=== PATIENT | female | born 1965 | race Caucasian/White ===

== ENCOUNTER → 2022-02-15 06:58 | Outpatient (BNVA) | payer OTHER, SELFPAY | PROVIDERS: Family Provider Orthopaedic Surgery; PCP Registered Nurse; Visit Provider Student in an Organized Health Care Education/Training Program | DX: S83.242A Other tear of medial meniscus, current injury, left knee, initial encounter (principal); X58.XXXA Exposure to other specified factors, initial encounter | CPT/HCPCS: 73560; 73565 ==

== ENCOUNTER 2022-02-27 08:15 | Day surgery (SDC) | payer OTHER, SELFPAY ==
[2022-02-27] VITALS (13 sets, daily range): BP systolic 106–139; BP diastolic 72–89; PULSE 61–78; RESP 8–18; TEMP 36.2–36.4; O2SAT 92–98
[2022-02-27] MEDS: sodium chloride 0.9% 1,000 ML 30 ML IV (08:58)
[2022-02-27] MEDS: ketorolac 30 mg/mL INJ IVP (08:58)
[2022-02-27] MEDS: acetaminophen 1,000 MG/100 ML PIGGYBACK 400 MG IV (08:58)
[2022-02-27 09:14] LABS: Blood Urea Nitrogen 13 mg/dL (6-20); Carbon Dioxide 25 mmol/L (22-29); Chloride 106 mmol/L (98-107); Glomerular Filtration Rate 73.7 mL/min (90-130); Glucose 90 mg/dL (65-115); Osmolality Calculated 290 mOsm/kg (285-295); Sodium 140 mmol/L (136-145)
--- NOTE | 2022-02-27 09:14 | W.PM.OPSUD ---
Surgery/Procedure H&P Update DATE OF PROCEDURE: February 27, 2022 DATE H&P PERFORMED: 02/15/22 CHANGES TO PREVIOUS DOCUMENTATION: None PREOP DIAGNOSIS: Left knee medial meniscus tear PRIMARY INDICATION FOR PROCEDURE: Left knee medial meniscus tear PLANNED PROCEDURE: Operation Date: 02/27/22 10:00 Proposed Procedures p left knee diagnostic arthroscopy with medial meniscectomy/ 78481,S83.242A(Left) - Dany Nowak DO s Meniscectomy(Left) - Dany Nowak DO
[2022-02-27 09:15] LABS: Anion Gap 13.8 (5-19); Potassium 4.8 mmol/L (3.5-5.1)
--- NOTE | 2022-02-27 09:30 | ANES.PREANE2 ---
Pre-Anesthetic Assessment Height/Weight: Height 1.63 m Weight 74.843 kg Temp Pulse Resp BP Pulse Ox O2 Del Method 97.1 F L 78 18 137/89 96 02/27/22 08:37 02/27/22 08:37 02/27/22 08:37 02/27/22 08:37 02/27/22 08:37 02/27/22 08:37 Preop Diagnosis: Left knee medial meniscus tear Operation Date: 02/27/22 10:00 Proposed Procedures p left knee diagnostic arthroscopy with medial meniscectomy/ 31835,S83.242A(Left) - Dany Nowak DO s Meniscectomy(Left) - Dany Nowak DO Familial anesthetic complications: None Was Beta Cali taken within 24 hours: N/A Was Clonidine taken within 24 hours: N/A Last intake: Intake Last Liquid Date 02/26/22 Last Liquid Time 23:00 Last Solid Date 02/26/22 Last Solid Time 23:00 Social No alcohol and No tobacco Exam alert, oriented x 3, clear to auscultation bilaterally and regular rate & rhythm Airway Mallampati: Class II Comments: Comments: some missing teeth GI Gastroesophageal Reflux Disease (occasional) Anesthetic Plan ASA status: 2 Anesthesia: MAC and Regional (specify below) Risk of > 500 ml blood loss (7ml/kg in children): No Medications/Allergies Home Medications Medication Instructions Recorded Confirmed Last Taken Type gabapentin 300 mg capsule 900 mg PO TID 02/15/21 02/27/22 02/27/22 History nystatin 100,000 unit/gram topical 1 applic topical BID #15 grams 02/15/21 02/26/22 Unknown Rx cream Multivitamin Gummies 2 gummy PO DAILY 02/26/22 02/27/22 02/27/22 History Vitamin D (with calcium) 1 tab PO DAILY 02/26/22 02/27/22 02/26/22 History baclofen 10 mg tablet 10 mg PO DAILY 02/26/22 02/27/22 02/27/22 History meloxicam 15 mg tablet 15 mg PO DAILY 02/26/22 02/27/22 02/25/22 History sertraline 100 mg tablet 100 mg PO DAILY 02/26/22 02/27/22 02/26/22 History bumetanide 1 mg tablet 1 mg PO DAILY 11/06/1902/27/22 02/26/22 History potassium chloride 10 mEq 10 meq PO DAILY 02/27/22 02/27/22 02/26/22 History tablet,extended release Allergies Allergy/AdvReac Type Severity Reaction Status Date / Time Sulfa (Sulfonamide Allergy unknown Verified 02/15/22 06:34 Antibiotics) Current Medications Generic Name Dose Route Start Last Admin Trade Name Freq PRN Reason Stop Dose Admin Sodium Chloride 1,000 mls @ 30 mls/hr 02/27/22 08:30 02/27/22 08:58 Sodium Chloride 0.9% IV 02/28/22 08:29 30 mls/hr .Q24H CRISTHIAN Administration PFSH Anesthesia Social History Smoking and tobacco status: never smoked Data Anesthesia : 02/27/22 08:47 BMP 02/27/22 08:47 Sodium 140 Potassium 4.8 Chloride 106 Carbon Dioxide 25 BUN 13 Creatinine 0.8 Glucose 90 Calcium 9.0 Cardiac Studies: No Data to Display
[2022-02-27] MEDS: ceFAZolin 2,000 MG in sodium chloride 0.9% (plus) 50 ML 100 MG IV (09:31)
--- NOTE | 2022-02-27 10:31 | P.OP_ITS ---
Brief Operative Note Date of procedure: 02/27/22 Pre-op diagnosis: Left knee medial meniscus tear Post-op diagnosis: same (With patellofemoral and medial compartment chondromalacia) Procedure Done: Left knee diagnostic and surgical arthroscopy with partial medial meniscectomy Medial and patellofemoral chondroplasties Extensive synovectomy of the medial, lateral and patellofemoral compartments Surgeon: Dany Nowak Estimated blood loss (mL): 5 Complications: None Post-op Plan: Patient to recover in PACU. She will discharge home today. She will be given appropriate discharge instructions as well as DVT prophylaxis and pain medication. Patient will follow-up with me in office in 2 weeks. She can be weightbearing as tolerated to the left lower extremity. Condition: stable Disposition: same day Coding Level of Care Code Acute Legal Billing Coordinator for Travis Deal
--- NOTE | 2022-02-27 10:33 | P.OP_ITS ---
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 Physical exam findings were concerning for a medial meniscus tear. She did present with MRI which did confirm left knee medial meniscus tear with mild chondromalacia left knee patient had no issues prior to twisting injuries and had persistent mechanical symptoms and complaints and pain medially. We shared decision making about her treatment options as far as nonoperative and operative intervention. She understands the risk benefits complication alternatives of surgical nonsurgical treatment options. Understanding of risks she agrees to proceed with surgical intervention of the left knee diagnostic and surgical arthroscopy with partial medial meniscectomy. All questions have been answered at this time. Patient agrees to proceed with surgical intervention. Procedure: Patient was seen and evaluated in preoperative holding area. Consent was reviewed patient. Correct extremity marked. Evaluated by anesthesia and preoperative team was ready for surgery she was taken back to the operative suite. Operative table placed in supine position all bony prominences were well-padded patient was appropriately secured to the bed. She underwent anesthesia per the anesthesia department. Once appropriately anesthetized left lower extremity was placed into a nonsterile tourniquet. Patient received appropriate preoperative antibiotics. The left lower extremity was prepped and draped in standard orthopedic fashion. She received a local injection portal sites as well as intra-articular lidocaine with epinephrine. Final timeout performed. Esmarch tourniquet was used exsanguinate the left lower extremity tourniquet was insufflated to 300 mmHg. Standard vertical 2 portal diagnostic and surgical arthroscopy left knee was performed. The inferior lateral portal. This was made in vertical fashion we then introduced a trocar and arthroscope in the suprapatellar pouch. This was cleaned and for loose bodies. We then entered the medial gutter which was free of loose bodies and visualize the medial compartment. We established a medial portal and lysing a spinal needle outside in technique. Portal site was then made under visualization and we then introduced arthroscopic shaver. Extensive synovium was in all 3 compartments. With performed an extensive synovectomy of the medial compartment first for visualization of the medial aspect of the knee. Medial compartment was found to have grade II chondromalacia throughout. I then performed a medial compartment chondroplasty to stable articular cartilage to stable margins. I then utilized an scopic probe to visualize the medial meniscus and she was found to have a complex tear the posterior horn of the medial meniscus. The root was intact and stable. I then utilized an arthroscopic shaver as well as basket forceps to carry out a partial medial meniscectomy this was taken in stable meniscal tissue and then I utilized thermal this completed partial medial meniscectomy To visualize intercondylar notch performed synovectomy of this area and the ACL and PCL were intact. Lateral compartment synovectomy was then performed and visualization of the lateral compartment was found to have grade I chondromalacia and a stable meniscus with an intact root and no lateral meniscal tear. Lateral gutter was free of loose bodies. I then turned in the patellofemoral joint and extensive synovectomy was then performed. In the undersurface of the patella was grade II chondromalacia with a focal area in the trochlea grade 2 3 chondromalacia I utilized arthroscopic shaver as well as thermal wand to perform a patellofemoral chondroplasty at this time. X-rays portals and subsequently visualized all 3 compartments and complete my final aspect is synovectomy from medial viewing portal. Tourniquet was then deflated. Hemostasis satisfactory. All instruments were withdrawn and fluid suctioned from the knee. Portal sites were then closed with interrupted nylon suture. Once again local lidocaine and epinephrine was injected oral sites and intra- articular. Incisions were then dressed with Xeroform 4 x 4's ABDs will and Saravanan bandage. Patient was then awakened from anesthesia and taken to PACU in stable condition Disposition: Patient taken to PACU in stable condition. She can weight-bear as tolerated to the left lower extremity given appropriate discharge instructions as well as pain medication DVT prophylaxis postoperatively. She will see me in office in 2 weeks. She understands that if questions or concerns she can contact the office.
--- NOTE | 2022-02-27 10:33 | PM.PACU ---
PACU note Narrative: Patient seen and examined in PACU. Patient recovering well. Still sedated from anesthesia not able to follow commands for motor or sensory examination. Distal pulses are palpable. Dressings on and in place and clean dry and intact. Exam: somnolent, arousable (Unable to follow commands, see narrative for detailed exam) Disposition: discharged
[2022-02-27] MEDS: fentaNYL 50 mcg/mL INJ 2mL IVP (10:59)
--- NOTE | 2022-02-27 12:44 | ANE.PACU2 ---
Inpatient post-anesthesia follow up: Airway intact: Yes Vital signs: Temperature 97.1 F Pulse Rate 70 Respiratory Rate 16 Blood Pressure 139/79 Pulse Oximetry 92 Oxygen Delivery Me thod Room Air Oxygen Flow Rate 2 Fraction of Inspir ed Oxygen Hydration adequate: Yes Nausea and vomiting: No Pain level: 1 Mental status: Baseline
--- NOTE | 2022-02-27 13:14 | SUR.PHASEII ---
patient left with walker delivered by HOME
== END 2022-02-27 13:13 | disposition home or self-care (01) ==
PROVIDERS: Anesthesiology; PCP Registered Nurse; Visit Provider Student in an Organized Health Care Education/Training Program
PROC: (CPT 29870; principal; 2022-02-27 09:50)
PROC: (CPT 29876; 2022-02-27 09:50)
DX: S83.242A Other tear of medial meniscus, current injury, left knee, initial encounter (principal); X50.1XXA Overexertion from prolonged static or awkward postures, initial encounter; M94.262 Chondromalacia, left knee; K21.9 Gastro-esophageal reflux disease without esophagitis
CPT/HCPCS: 29876; 29881; 36415; 80048; J0131; J0690; J1100; J1885; J2250; J2704; J2795; J3010; J7030

== ENCOUNTER 2023-01-22 06:00 | Outpatient (RCR) | payer OTHER, SELFPAY | END 2023-01-25 23:59 | disposition home or self-care (01) | LOC: MPT 06:00 | PROVIDERS: Visit Provider Physician Assistant | DX: M54.50 Low back pain, unspecified (principal) | CPT/HCPCS: 97162 ==

== ENCOUNTER 2023-01-26 06:00 | Outpatient (RCR) | payer OTHER, SELFPAY | END 2023-02-25 23:59 | disposition home or self-care (01) | LOC: MPT 06:00 | PROVIDERS: Visit Provider Physician Assistant | DX: M54.50 Low back pain, unspecified (principal) | CPT/HCPCS: 97110; G0283 ==

== ENCOUNTER 2023-02-26 06:00 | Outpatient (RCR) | payer OTHER, SELFPAY | END 2023-03-27 23:59 | disposition home or self-care (01) | LOC: MPT 06:00 | PROVIDERS: Visit Provider Physician Assistant | DX: M54.50 Low back pain, unspecified (principal) | CPT/HCPCS: 97110; 97140; G0283 ==

== ENCOUNTER 2023-03-28 06:00 | Outpatient (RCR) | payer OTHER, SELFPAY | END 2023-04-27 23:59 | disposition home or self-care (01) | LOC: MPT 06:00 | PROVIDERS: Visit Provider Physician Assistant | DX: M54.50 Low back pain, unspecified (principal) | CPT/HCPCS: 97110; 97140; G0283 ==